=== PATIENT | female | born 1985 | race Caucasian/White ===

== ENCOUNTER 2021-07-07 21:54 | Observation (INO) ==
[2021-07-07] MEDS ORDERED: ONDANSETRON INJ 2 MG/ML 2 ML VIAL IV STA (22:24)
[2021-07-07] MEDS ORDERED: SODIUM CHLORIDE 0.9% 1000ML 1,000 ML IV SCH (22:30)
--- NOTE | 2021-07-07 22:31 | Emergency Department Note ---
History of Present Illness General Chief complaint: Abdominal Pain Stated complaint: ABDOMINAL PAIN, VOMITING, NAUSEA Time Seen by Provider: 07/07/21 22:12 History of Present Illness Maximum Pain Intensity: 5 This is a 35-year-old female presenting to the emergency department for evaluati on of abdominal pain, nausea, and vomiting for the past day. The patient states that she began with symptoms early this morning and they have worsened throughout the day. The patient does report some generalized abdominal pain that may be worse on the right side this evening. She does not have a history of abdominal surgery, and does not take medication on a regular basis. No fevers or chills. She has been able to tolerate sips of fluids over the past 2 hours without vomiting, but has not had food since 9 AM. She rates her discomfort a 5 AM in different positions seem to improve and worsen her pain. 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 Beliefs That Will Affect Care: None Current Living Situation: Spouse Other Information That Helps Us Care for You: No Feels Safe at Home: Yes Safety Concerns: Feels Safe At This Time Review of Systems A total of 10 systems reviewed and were otherwise negative Physical Exam Vital Signs Vital Signs - 24 hr 07/07/21 22:00 07/07/21 23:22 07/08/21 00:30 Temperature 36.9 C Temperature Source Temporal Artery Scan Pulse Rate 91 H Pulse Rate [Finger] 86 84 Respiratory Rate 22 20 20 Respiratory Effort / Characteristics Non-Labored Spontaneous Blood Pressure 114/80 Blood Pressure [Right Arm] 110/74 124/84 Blood Pressure Mean 91 Blood Pressure Mean [Right Arm] 86 97 Pulse Oximetry 99 98 Oxygen Delivery Method Room Air Room Air Room Air Sepsis Recent Fever Within 48 Hours No Sepsis New/Unexplained Change in Mental Status No Sepsis Action Taken by Nursing No Action Required 07/08/21 01:51 Temperature Temperature Source Pulse Rate Pulse Rate [Finger] 86 Respiratory Rate 20 Respiratory Effort / Characteristics Blood Pressure Blood Pressure [Right Arm] 126/81 Blood Pressure Mean Blood Pressure Mean [Right Arm] 96 Pulse Oximetry 98 Oxygen Delivery Method Room Air Sepsis Recent Fever Within 48 Hours Sepsis New/Unexplained Change in Mental Status Sepsis Action Taken by Nursing VITALS: Vitals are noted on the nurse's note and reviewed by myself. Vital signs stable. GENERAL: Well-developed, well-nourished, female, who is pleasant but mildly uncomfortable on presentation. MOUTH: Mucous membranes moist. Tonsils are not enlarged. Pharynx without erythema, blood, or exudate. Uvula midline. Airway patent. NECK: Supple without nuchal rigidity. No lymphadenopathy. No thyromegaly. Cervical spine is nontender. HEART: Regular rate and rhythm without murmurs gallops or rubs. LUNGS: Clear to auscultation bilaterally without wheezes, rales or rhonchi. No retractions or accessory muscle use. ABDOMEN: Positive normal bowel sounds x 4. Soft with tenderness in the right lower quadrant. No rebound or guarding. No CVA tenderness. MUSCULOSKELETAL: No muscle atrophy, erythema, or edema noted. Full range of motion in all extremities. Course Administered Medications Potassium Chloride 10 meq/ (Sodium Chloride) 1,005 mls @ 100 mls/hr IV .Q10H3M [facility] Stop: 08/07/21 02:59 Last Admin: 07/08/21 06:31 Dose: 100 mls/hr Documented by: [id number] Ondansetron HCl (Ondansetron Inj 2 Mg/Ml 2 Ml Vial) 4 mg IV Q6H PRN PRN Reason: Nausea And Vomiting Stop: 08/07/21 02:52 Last Admin: 07/08/21 03:08 Dose: 4 mg Documented by: [id number] Discontinued Medications Sodium Chloride (Nss 1000ml) 1,000 mls @ 999 mls/hr IV .Q1H1M [facility] Stop: 07/07/21 23:30 Last Infusion: 07/07/21 23:53 Dose: 0 mls/hr Documented by: [id number] Admin: 07/07/21 22:45 Dose: 999 mls/hr Documented by: [id number] Cefoxitin Sodium (Mefoxin) 2,000 mg in 60 mls @ 100 mls/hr IV NOW STA Stop: 07/08/21 03:04 Last Infusion: 07/08/21 03:24 Dose: 0 mls/hr Documented by: [id number] Admin: 07/08/21 02:50 Dose: 100 mls/hr Documented by: [id number] Ioversol (Optiray 320 100ml) 100 ml IV ONCE ONE Stop: 07/08/21 01:18 Last Admin: 07/08/21 01:17 Dose: 93 ml Documented by: [id number] Morphine Sulfate (Morphine Sulfate 4 Mg/Ml 1 Ml Carp\Vial) 4 mg IV Q30M PRN PRN Reason: Pain Stop: 07/21/21 22:23 Last Admin: 07/08/21 03:08 Dose: 4 mg Documented by: [id number] Admin: 07/07/21 22:45 Dose: 4 mg Documented by: [id number] Ondansetron HCl (Ondansetron Inj 2 Mg/Ml 2 Ml Vial) 4 mg IV NOW STA Stop: 07/07/21 22:25 Last Admin: 07/07/21 22:44 Dose: 4 mg Documented by: [id number] Medical Decision Making Differential Diagnosis Differential diagnosis: Etiologies such as biliary colic, cholecystitis, hepatitis, pancreatitis, cardiac disease, pancreatitis, gastritis, peptic ulcer disease, appendicitis, cystitis, diverticulitis, mesenteric ischemia, inflammatory bowel disease, ileus, bowel obstruction, testicular/adnexal torsion, aortic pathology, shingles, as well as others were considered Laboratory Data Result diagrams: 07/07/21 22:41 07/07/21 22:41 Lab Results 07/07/21 07/07/21 07/07/21 Range/Units 22:41 22:41 22:41 WBC 19.36 H (4.8-10.8) K/uL RBC 4.15 L (4.2-5.4) M/uL Hgb 12.7 (12.0-16.0) g/dL Hct 36.2 L (37-47) % MCV 87.2 (80-100) fL MCH 30.6 (25-34) pg MCHC 35.1 (32-36) g/dL RDW Std Deviation 41.6 (36.4-46.3) fL RDW Coeff of Mikey 12.9 (11.5-14.5) % Plt Count 331 (130-400) K/uL MPV 9.6 (7.4-10.4) fL Neutrophils % (Manual) 96.5 % Lymphocytes % (Manual) 2.6 % Monocytes % (Manual) 0.9 % Neutrophils # (Manual) 18.68 H (1.4-6.5) K/uL Total Absolute Neuts 18.68 H (1.4-6.5) K/uL Lymphocytes # (Manual) 0.50 L (1.2-3.4) K/uL Total Abs Lymphocytes 0.50 L (1.2-3.4) K/uL Monocytes # (Manual) 0.17 (0.11-0.59) K/uL Sodium 135 L (136-145) mmol/L Potassium 3.4 L (3.5-5.1) mmol/L Chloride 100 (98-107) mmol/L Carbon Dioxide 24 (21-32) mmol/L Anion Gap 11 (3-11) BUN 12 (6-23) mg/dl Creatinine 0.71 (0.6-1.2) mg/dl Est Cr Clr Drug Dosing 106.9 ml/min Est GFR ( Amer) 126.1 ml/min Est GFR (Non-Af Amer) 108.8 ml/min BUN/Creatinine Ratio 16.9 (10-20) Glucose 127 H (70-99(Fasting)) mg/dl Calcium 9.5 (8.5-10.1) mg/dl Total Bilirubin 0.7 (0.2-1.0) mg/dl AST 14 (13-39) U/L ALT 12 (7-52) U/L Alkaline Phosphatase 46 (34-104) U/L Total Protein 7.6 (6.0-8.3) gm/dl Albumin 4.4 (3.4-5.0) gm/dl Globulin 3.2 (2.5-4.0) gm/dl Albumin/Globulin Ratio 1.4 (0.9-2) Lipase 12 (11-82) U/L Urine Color Dark Yellow Urine Appearance Turbid A (Clear) Urine pH 6.0 (4.5-7.5) Ur Specific [place] 1.036 H (1.000-1.030) Urine Protein 1+ H (Negative) Urine Glucose (UA) Negative (Negative) Urine Ketones 1+ H (Negative) Urine Blood Negative (Negative) Urine Nitrite Negative (Negative) Urine Bilirubin Negative (Negative) Urine Urobilinogen Negative (Negative) Ur Leukocyte Esterase Trace H (Negative) Urine WBC (Auto) 1-5 (0-5) /hpf Urine RBC (Auto) 0-4 (0-4) /hpf U Hyaline Cast (Auto) 0 (0-5) /lpf U Epithel Cells (Auto) 0-5 (0-5) /lpf Urine Bacteria (Auto) 2+ H (Negative) Urine Crystals Amorphous Sediment A (None Prsent) Amorphous Sediment Present A (None Prsent) POC Ur Test (NEG) SARS-CoV-2, RNA, NAAT (NEGATIVE) 07/07/21 07/07/21 Range/Units 22:41 22:41 WBC (4.8-10.8) K/uL RBC (4.2-5.4) M/uL Hgb (12.0-16.0) g/dL Hct (37-47) % MCV (80-100) fL MCH (25-34) pg MCHC (32-36) g/dL RDW Std Deviation (36.4-46.3) fL RDW Coeff of Mikey (11.5-14.5) % Plt Count (130-400) K/uL MPV (7.4-10.4) fL Neutrophils % (Manual) % Lymphocytes % (Manual) % Monocytes % (Manual) % Neutrophils # (Manual) (1.4-6.5) K/uL Total Absolute Neuts (1.4-6.5) K/uL Lymphocytes # (Manual) (1.2-3.4) K/uL Total Abs Lymphocytes (1.2-3.4) K/uL Monocytes # (Manual) (0.11-0.59) K/uL Sodium (136-145) mmol/L Potassium (3.5-5.1) mmol/L Chloride (98-107) mmol/L Carbon Dioxide (21-32) mmol/L Anion Gap (3-11) BUN (6-23) mg/dl Creatinine (0.6-1.2) mg/dl Est Cr Clr Drug Dosing ml/min Est GFR ( Amer) ml/min Est GFR (Non-Af Amer) ml/min BUN/Creatinine Ratio (10-20) Glucose (70-99(Fasting)) mg/dl Calcium (8.5-10.1) mg/dl Total Bilirubin (0.2-1.0) mg/dl AST (13-39) U/L ALT (7-52) U/L Alkaline Phosphatase (34-104) U/L Total Protein (6.0-8.3) gm/dl Albumin (3.4-5.0) gm/dl Globulin (2.5-4.0) gm/dl Albumin/Globulin Ratio (0.9-2) Lipase (11-82) U/L Urine Color Urine Appearance (Clear) Urine pH (4.5-7.5) Ur Specific [place] (1.000-1.030) Urine Protein (Negative) Urine Glucose (UA) (Negative) Urine Ketones (Negative) Urine Blood (Negative) Urine Nitrite (Negative) Urine Bilirubin (Negative) Urine Urobilinogen (Negative) Ur Leukocyte Esterase (Negative) Urine WBC (Auto) (0-5) /hpf Urine RBC (Auto) (0-4) /hpf U Hyaline Cast (Auto) (0-5) /lpf U Epithel Cells (Auto) (0-5) /lpf Urine Bacteria (Auto) (Negative) Urine Crystals (None Prsent) Amorphous Sediment (None Prsent) POC Ur Test NEG (NEG) SARS-CoV-2, RNA, NAAT NEGATIVE (NEGATIVE) Imaging Data Radiologist's Impression: Preliminary Findings Only See Final Report For Complete Findings CT ABDOMEN & PELVIS With Contrast: There is an 8 x 12 mm proximal appendicolith noted. Distal to the appendicolith, the appendix is abnormally fluid filled and dilated, measuring 15 mm with periappendiceal fat stranding. Findings are most consistent with acute appendicitis. No evidence for perforation or abscess formation. No bowel obstruction. The liver, gallbladder, pancreas, spleen, adrenal glands and kidneys are unremarkable. The bladder is unremarkable. No acute osseous abnormality. No significant overlying soft tissue abnormality with incidental laxity of the linea alba in the periumbilical region. Radiologist:Fred Guzmán MD [facility] Narrative Physical exam and history were performed. Nursing notes, EMR, and Medication List were personally reviewed. Patient appears to have nausea and vomiting bringing her to the emergency department. On exam she does have tenderness in the right lower quadrant which is concerning. IV access was established and labs were obtained. She was hydrated normal saline and given IV morphine and IV Zofran for comfort. She was prepped for CT scan of the abdomen pelvis with IV and oral contrast. She was kept n.p.o. and Covid was performed. The patient's blood work is as above and was reviewed. She does have an elevate d white blood cell count of 19,000 with associated neutrophil count of 18,000. Lipase and transaminases are not diagnostic. Urine is negative for and culture is pending. Covid is negative. CT scan is as above and was reviewed by myself and radiology. CT scan is concerning for acute appendicitis. The patient was given IV Mefoxin here in the ER and I did reach out to the surgical service. Please see their dictation for further patient course, plan, and disposition. The chart was completed utilizing [employer] Speech Voice Recognition Software. Grammatical errors, random word insertions, pronoun errors, and incomplete sentences are an occasional consequence of this system due to software limitations, ambient noise, and hardware issues. Any formal questions or concerns about the content, text, or information contained within the body of this dictation should be directly addressed to the provider for clarification. . Impression & Plan Acute appendicitis, RLQ abdominal pain Discharge Plan Visit Data Chief Complaint: Abdominal Pain Stated Complaint: ABDOMINAL PAIN, VOMITING, NAUSEA ED Provider: Rashad Gonzalez ED Midlevel Provider: Ben Santana Discharge Problem: Acute appendicitis, RLQ abdominal pain Patient Disposition: Admitted As Inpatient Discharge Instructions Interventions: ED Discharge Assessment Last Done: 07/08/21 03:38
[2021-07-07] MEDS: MoRPHine SULFATE 4 MG/ML 1 ML CARP\\VIAL IV PRN (22:45)
[2021-07-07 22:54] LABS: Appearance Urine Turbid (Clear); Bilirubin Urine Negative (Negative); Blood Urine Negative (Negative); Color Urine Dark Yellow; Glucose Urine UA Negative (Negative); Ketones Urine 1+ (Negative); Leukocyte Esterase Urine Trace (Negative); Nitrite Urine Negative (Negative); Protein Urine 1+ (Negative); Specific Gravity Urine 1.036 (1.000-1.030); Urobilinogen Urine Negative (Negative)
[2021-07-07 22:58] LABS: Hematocrit (blood only) 36.2 % (37-47); Hemoglobin 12.7 g/dL (12.0-16.0); Mean Corpuscular Hemoglobin 30.6 pg (25-34); Mean Corpuscular Hgb Conc 35.1 g/dL (32-36); Mean Corpuscular Volume 87.2 fL (80-100); Mean Platelet Volume 9.6 fL (7.4-10.4); Platelet Count 331 K/uL (130-400); RDW Coefficient of Variation 12.9 % (11.5-14.5); RDW Standard Deviation 41.6 fL (36.4-46.3); Red Blood Count 4.15 M/uL (4.2-5.4); White Blood Count 19.36 K/uL (4.8-10.8)
[2021-07-07 23:01] LABS: Amorphous Sediment Urine Present (None Prsent); Bacteria Urine Automated 2+ (Negative); Cast Urine Automated 0 /lpf (0-5); Epithelial Cell Urine Auto 0-5 /lpf (0-5); RBC Urine Automated 0-4 /hpf (0-4)
[2021-07-07 23:16] LABS: Albumin Globulin Ratio 1.4 (0.9-2); Albumin Level 4.4 gm/dl (3.4-5.0); BUN Creatinine Ratio 16.9 (10-20); Bilirubin,Total 0.7 mg/dl (0.2-1.0); Calcium 9.5 mg/dl (8.5-10.1); Creatinine Clr Calc Pharmacy 106.9 ml/min; Est GFR (African American) 126.1 ml/min; Est GFR (Non-African American) 108.8 ml/min; Globulin 3.2 gm/dl (2.5-4.0); Potassium 3.4 mmol/L (3.5-5.1); Total Protein 7.6 gm/dl (6.0-8.3)
[2021-07-07 23:20] LABS: ANC (manual) 18.68 K/uL (1.4-6.5); Lymphocytes % (manual) 2.6 %; Monocytes # (manual) 0.17 K/uL (0.11-0.59); Monocytes % (manual) 0.9 %; Neutrophils # (manual) 18.68 K/uL (1.4-6.5); Neutrophils % (manual) 96.5 %
[2021-07-08] MEDS ORDERED: OPTIRAY 320 100ml IV ONE (01:17)
[2021-07-08] MEDS ORDERED: cefOXitin 2,000 MG/60 ML BAG IV STA (02:29)
--- NOTE | 2021-07-08 02:49 | History & Physical Report ---
Date of Service July 08, 2021 Assessment & Plan (1) Acute appendicitis: Plan: Due to the patient's clinical presentation, labs, and imaging we admit her to the hospital proceeding as follows: Analgesia will be provided Antiemetics will be provided We will make the patient n.p.o. We will provide hydration with IV fluids, supplementing her potassium We will initiate antibiotics. The treating clinician in the emergency department has already ordered Mefoxin which we will continue We will plan on performing an appendectomy. I discussed the laparoscopic, possible open appendectomy with the patient outlining the risks, benefits, and expected postoperative course. She wishes to proceed. Additional recommendations be forthcoming based on operative findings and her postoperative course SCDs were used for DVT prevention, no chemical means due to planned surgery She will be a level 1 full code History of Present Illness Chief Complaint: Abdominal pain Primary Care Provider: NO PCP This is a 35-year-old female who presented to [facility] emergency department secondary to abdominal pain. Patient notes that the pain began approximate 24 hours ago. She did not seek medical attention initially because she thought it was merely indigestion. Patient had an associated headache but several hours later after eating breakfast she had nausea vomiting. She noted that she had generalized abdominal pain which was greatest in the suprapubic region but that has since shifted to the right lower quadrant. She notes that the pain has been improved by medicine that was administered in the emergency department. She denies any provocative factors. She notes that she has never had any prior abdominal surgeries. The only other associated symptoms the patient has was a headache that preceded her abdominal pain. No fevers or chills were reported. In the emergency department the patient had labs and imaging which I independent reviewed. CT scan abdomen and pelvis showed the patient had an 8 x 12 mm proximal appendicolith. Distal to the pedicle at the appendix was noted to be d ilated and fluid-filled measuring approximately 15 mm. There is periappendiceal fat stranding. Findings were felt to be consistent with acute appendicitis, however no evidence of perforation or abscess was noted. Labs include a CBC her white blood cell count was 19.3. Hemoglobin was 12.7 and hematocrit was 36.2. Platelet count was noted to be within the normal range. Chemistry profile showed sodium and potassium are 135 and 3.4. BUN and creatinine were 12 and 0.7. There is no elevation of patient's LFTs or lipase. Urinalysis was not indicative of infection. test was noted to be negative. Covid test was noted to be negative. At the time of my interview the patient was resting in bed. She was in no distress Allergies Allergy/AdvReac Type Severity Reaction Status Date / Time Penicillins AdvReac Intermediate SEE COMMENT Verified 07/08/21 07:01 Home Medications Medication Instructions Recorded Confirmed Type CONTROL #0 10/06/05 History norgestimate 0.25 mg-ethinyl 1 tab PO DAILY 07/07/21 07/07/21 History estradiol 35 mcg tablet Past Med/Surg History Medical History (Updated 07/08/21 @ 07:01 by Madisyn Day) No chronic diseases present Surgical History (Updated 07/08/21 @ 07:01 by Madisyn Day) No significant past surgical history Social History (System 07/08/21 @ 07:01 by Madisyn Day) Smoking Status: Never smoker Hx Alcohol Use: No Hx Substance Use: No Preferred Language: Puerto Rican Communication Ability: Effective 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 Beliefs That Will Affect Care: None Current Living Situation: Spouse Other Information That Helps Us Care for You: No Feels Safe at Home: Yes Safety Concerns: Feels Safe At This Time Assistive Devices: None Review of Systems Constitutional: no fever and no chills Eyes: no diplopia Ear, Nose, Mouth, Throat: no ear pain Respiratory: no cough and no dyspnea Cardiovascular: no chest pain Gastrointestinal: + abdominal pain, + nausea and + vomiting Genitourinary: no dysuria Musculoskeletal: no back pain Integumentary: no rash Neurologic: no localized weakness Physical Exam Constitutional: WD/WN, vitals as above Eyes: no conjunctival abnormality ENMT: Ears: no hearing impairment and no external ear abnormality Mouth: no oropharynx abnormality Neck: trachea midline Respiratory: normal respiratory effort; no respiratory distress and no labored breathing Cardiovascular: Rate/Rhythm: regular rate and regular rhythm Gastrointestinal (Abdomen): Abdomen is minimally distended. It is otherwise soft. There is no rebound tenderness or guarding however patient did have pain with palpation in the right lower quadrant over McBurney's point. Musculoskeletal: No calf tenderness Skin: no rashes Neurologic: moves all extremities Psychiatric: A+Ox3, euthymic affect Results & Data Results & Data ([facility]) Vital Signs (Past 12 Hours) Vital Signs Temp Pulse Pulse Resp BP BP Pulse Ox 07/08/21 01:51 86 20 126/81 98 07/08/21 00:30 84 20 124/84 98 07/07/21 23:22 86 20 110/74 99 07/07/21 22:00 36.9 C 91 H 22 114/80 Supervising Physician Co-Signing Physician Notes Patient seen and examined, labs and imaging reviewed, agree with above. 35-year-old female with acute appendicitis. Afebrile with stable vitals, tender to palpation in the right lower quadrant. WBC 19. CT with dilated appendix with appendicolith. Plan for laparoscopic appendectomy. Risk the procedure were discussed to include but not limited to bleeding, infection, conversion open, normal appendix, need for future more extensive surgery, demonstrating structures, and the risk of anesthesia. PG Care Time/CCT Total # of Minutes Spent Total Time Spent with Patient: Total time spent is greater than 50% in coordination of care (as documented) at patient's floor/unit and/or counseling patient: Coding Level of Care Code INT OBSERVATION CARE 70M LVL 3 Diagnoses Acute appendicitis K35.80
[2021-07-08] MEDS ORDERED: MoRPHine SULFATE 4 MG/ML 1 ML CARP\\VIAL IV PRN ×2 (02:53→14:40)
[2021-07-08] MEDS ORDERED: ONDANSETRON INJ 2 MG/ML 2 ML VIAL IV PRN ×2 (02:53→12:18)
[2021-07-08] MEDS ORDERED: ACETAMINOPHEN 1,000 MG/100 ML VIAL IV PRN (02:53)
[2021-07-08] MEDS ORDERED: POTASSIUM CHLORIDE 10 MEQ in SODIUM CHLORIDE 0.9% 1000ML 1,000 ML IV SCH (03:00)
[2021-07-08] MEDS: MoRPHine SULFATE 4 MG/ML 1 ML CARP\\VIAL IV PRN (03:08)
--- NOTE | 2021-07-08 06:50 | Anesthesiology Consultation ---
Date of Service July 08, 2021 Assessment & Plan (1) Encounter for pre-operative examination: Chart Review Chart Review: freelance data entry initiated History Surgery Operation Date: 07/08/21 09:40 Proposed Procedures p Laparoscopic Appendectomy - Arnulfo Snell DO, FACS Height/Weight Height: 5 ft 5 in Weight: 70.5 kg Allergies Allergy/AdvReac Type Severity Reaction Status Date / Time Penicillins AdvReac Intermediate SEE COMMENT Verified 07/07/21 22:46 Medications Home Medications Medication Instructions Recorded Confirmed Last Taken norgestimate 0.25 mg-ethinyl 1 tab PO DAILY 07/07/21 07/07/21 07/07/21 estradiol 35 mcg tablet Active Medications Generic Name Dose Route Start Last Admin Trade Name Freq PRN Reason Stop Dose Admin Potassium Chloride 10 meq/ 1,005 mls @ 100 mls/hr 07/08/21 03:00 07/08/21 06:31 Sodium Chloride IV 08/07/21 02:59 100 mls/hr .Q10H3M [facility] Administration Ondansetron HCl 4 mg 07/08/21 02:53 07/08/21 03:08 Ondansetron Inj 2 Mg/Ml 2 Ml Vial IV 08/07/21 02:52 4 mg Q6H PRN Administration Nausea And Vomiting Past Medical History Medical History No chronic diseases present Past Surgical History Surgical History No significant past surgical history Social History Smoking Status: Never smoker Hx Alcohol Use: No Hx Substance Use: No Physical Exam Vital Signs Last Vital Signs Temp 98.8 F 07/08/21 03:55 Pulse 101 H 07/08/21 03:55 Resp 18 07/08/21 03:55 BP 135/80 07/08/21 03:55 Pulse Ox 98 07/08/21 03:55 Testing Laboratory Results 07/07/21 22:41 07/07/21 22:41 Urine Color Dark Yellow 07/07/21 22:41 Urine Appearance Turbid (Clear) A 07/07/21 22:41 Urine pH 6.0 (4.5-7.5) 07/07/21 22:41 Ur Specific [place] 1.036 (1.000-1.030) H 07/07/21 22:41 Urine Protein 1+ (Negative) H 07/07/21 22:41 Urine Glucose (UA) Negative (Negative) 07/07/21 22:41 Urine Ketones 1+ (Negative) H 07/07/21 22:41 Urine Nitrite Negative (Negative) 07/07/21 22:41 Ur Leukocyte Esterase Trace (Negative) H 07/07/21 22:41 Urine WBC (Auto) 1-5 /hpf (0-5) 07/07/21 22:41 Urine RBC (Auto) 0-4 /hpf (0-4) 07/07/21 22:41 U Hyaline Cast (Auto) 0 /lpf (0-5) 07/07/21 22:41 U Epithel Cells (Auto) 0-5 /lpf (0-5) 07/07/21 22:41 Urine Bacteria (Auto) 2+ (Negative) H 07/07/21 22:41 07/07/21 22:41 POC Ur Test NEG
--- NOTE | 2021-07-08 07:34 | CT Scan Report ---
ABDOMEN AND PELVIS CT WITH IV AND ORAL CONTRAST CT DOSE: 505.95 mGycm HISTORY: Acute right lower quadrant abdominal pain with nausea and vomiting rlq abd pain, n/v TECHNIQUE: Multiaxial CT images of the abdomen and pelvis were performed following the IV administrat ion of 93 cc of Optiray and oral contrast. A dose lowering technique was utilized adhering to the pr inciples of ZACHARIAH. COMPARISON STUDY: None. FINDINGS: The imaged inferior cardiac chambers are unremarkable. Clear lung bases. No pneumatosis or pneumoperitoneum. The spleen, pancreas, gallbladder, adrenal glands and liver appear unremarkable. Pa tency of the hepatic and portal veins. Normal kidneys. No hydronephrosis. The urinary bladder, uterus and adnexa are unremarkable. Trace free pelvic fluid. Air within the endovaginal canal incidentally noted. Aorta and IVC are unremarkable. There is no adenopathy. No bowel obstruction. Mild fecal retention. There is a 1.4 cm appendicolith the proximal appendiceal lumen. The appendix is dilated and fluid-filled measuring up to 1.4 cm transversely with surrounding inflammatory stranding and trace free fluid. Subcentimeter appendicolith with air noted within the di stal appendix. No perforation or drainable fluid collection. Diastases recti with tiny fat filled per iumbilical hernia, diastases of 1.5 cm. No acute fracture. Unremarkable soft tissues. Segmentation an omaly with butterfly vertebral body noted at T11. IMPRESSION: 1. Acute appendicitis secondary to an obstructing appendicolith. Air within the distal appendiceal ti p is suggestive of intraluminal necrosis. No perforation or abscess. 2. Trace free pelvic fluid. 3. No bowel obstruction. 4. Diastases recti with tiny fat filled periumbilical hernia. ACT 112: Negative or not required by law. The above report was generated using voice recognition software. It may contain grammatical, syntax o r spelling errors. Electronically signed by: Michael Madsen M.D. 07/08/2021 7:33 AM
[2021-07-08] MEDS: cefOXitin 2,000 MG in DEXTROSE 5% 50 ML IV SCH ×2 (07:50→13:53)
--- NOTE | 2021-07-08 10:31 | History & Physical Bridge Note ---
Date of Service July 08, 2021 History & Physical Bridge Note I have examined the patient, reviewed the History & Physical and in the interval since the performance of the History & Physical I have noted the following changes of clinical significance: no changes noted
[2021-07-08] MEDS ORDERED: PROPOFOL IV EMULSION 10 MG/ML 20 ML VIAL IV ONE (12:13)
[2021-07-08] MEDS ORDERED: NEOSTIGMINE METHYLSULFATE 1 MG/ML 10ML VIAL ONE (12:13)
[2021-07-08] MEDS ORDERED: DEXAMETHASONE SOD INJ 4 MG/ML VIAL ONE (12:13)
[2021-07-08] MEDS ORDERED: fentaNYL citrate 100 MCG/2 ML VIAL ONE ×2 (12:13→13:10)
[2021-07-08] MEDS ORDERED: ROCURONIUM BROMIDE 10 MG/ML 5 ML VIAL IV ONE (12:13)
[2021-07-08] MEDS ORDERED: ONDANSETRON INJ 2 MG/ML 2 ML VIAL ONE (12:13)
[2021-07-08] MEDS ORDERED: MIDAZOLAM HCL 1 MG/ML 2ML VIAL ONE (12:13)
[2021-07-08] MEDS ORDERED: LIDOCAINE 2% 2 ML VIAL/AMP(20MG/ML) INFIL ONE (12:13)
[2021-07-08] MEDS ORDERED: GLYCOPYRROLATE 0.2 MG/ML VIAL ONE (12:13)
[2021-07-08] MEDS ORDERED: fentaNYL citrate 100 MCG/2 ML VIAL IV PRN (12:18)
[2021-07-08] MEDS ORDERED: ePHEDrine sulfate 50 MG/ML AMP IV PRN (12:18)
[2021-07-08] MEDS ORDERED: ATROPINE SULFATE 0.1 MG/ML 10ML SYR IV PRN (12:18)
[2021-07-08] MEDS ORDERED: BUPIVACAINE 0.5 % 5 MG/1 ML MPF 30ML VIAL ONE (12:37)
[2021-07-08] MEDS ORDERED: SCOPOLAMINE 1 MG TDSY TD ONE (12:45)
[2021-07-08] MEDS ORDERED: PHENYLEPHRINE 100MCG/ML 5ML SYR ONE (13:08)
--- NOTE | 2021-07-08 13:49 | Operative Report ---
PG Post Operative Report Pre & Post Diagnosis Operation Date: 07/08/21 09:40 Pre-Op Diagnosis: Acute appendicitis Post-Op Diagnosis: Acute appendicitis I identified the patient and participated in the time-out.: Yes Procedure Operation Date: 07/08/21 09:40 Actual Procedures p Laparoscopic Appendectomy(Not Applicable) - Arnulfo Snell DO, FACS Surgeon Arnulfo Snell DO, FACS Behavioral Technician George Tobar Estimated Blood Loss 5 Findings Consistent with Post-Op Diagnosis Partially retrocecal inflamed appendix. No perforation. Mesoappendix taken down with harmonic scalpel, 60 mm purple loaded endoscopic stapler used to staple across the appendix. Specimens Appendix Anesthesia Type General Complications none Disposition Accompanied Patient To Recovery: No Disposition: Recovery Room Indications 35-year-old female presented with signs and symptoms of appendicitis. Plan for laparoscopic appendectomy. The risks of the procedure were discussed, all questions were answered, and the patient agreed to proceed with surgery as planned. Description of Procedure The patient was properly identified, consented, and taken to the operating room where she was placed in the supine position. General endotracheal anesthesia was induced. SCDs and a safety belt were placed. Preoperative antibiotics were administered. A Britton catheter was not placed. The patient's abdomen was prepped and draped in the standard sterile fashion. Surgical timeout was performed and all parties were in agreement that this was the correct patient and procedure to be performed and we continued as planned. An incision was made just to the left and superior of the umbilicus. The Veress needle was inserted and saline drop test confirmed entry into the peritoneum. The peritoneum was insufflated with carbon dioxide which the patient tolerated without incident. Veress needle was removed and the abdomen was accessed using the Optiview technique with a 5 mm trocar and a 5 mm 30 degree camera. The laparoscope was inserted and no damage from initial trocar placement was noted, no gross abnormalities were noted within the 4 quadrants the abdomen. A 5 mm port was placed in the suprapubic position with care not to damage the bladder, and a 12 mm port was placed in the left lower quadrant with care not to damage the epigastric vessels. The patient was placed in Trendelenburg position and rotated towards the left. The small bowel was swept away from the right lower quadrant. The cecum was grasped with an atraumatic grasper exposing the appendix. The appendix was significantly inflamed but there was no evidence of perforation. There was no fluid in the pelvis. The appendix was partially retrocecal. The harmonic scalpel was utilized to mobilize the appendix and a small portion of the cecum. There was some inflammation at the base of the appendix and terminal ileum. The Harmonic scalpel was utilized to take down the mesoappendix working once from distal to proximal. Once we got down to a healthy base of the appendix we were able to staple across this. A purple loaded endoscopic stapler was then used to divide the appendix at its base. The appendix was placed in an Endo Catch bag and removed through the left lower quadrant port site. The right lower quadrant and pelvis was irrigated and hemostasis was found to be good. The fascia of the left lower quadrant port site was closed with 0 Vicryl utilizing the Kashif- Froy device. The other ports were removed and the abdomen was allowed to collapse. The wound was irrigated, and the skin of all ports was closed with 4- 0 Monocryl subcuticular sutures. Dermabond was placed over the wounds. The patient was extubated in the operating room and taken to the PACU where she recovered without apparent incident. All sponge, instrument and needle counts were correct at the conclusion of the procedure. The patient tolerated the procedure well. The physician's machine assistant was present and scrubbed for the entirety of the case. He was critical in positioning the patient, prepping and draping, retraction and exposure, driving the laparoscope, closure of the incisions, and placement of the dressings. I attest to the content of the Intraoperative Record and any orders documented therein. Any exceptions are noted below.
--- NOTE | 2021-07-08 14:28 | Anesthesiology Progress Note ---
Date of Service July 08, 2021 Anesthesia Post Procedure Vital Signs Vital Signs: Temp Pulse Pulse Pulse Pulse Resp BP 07/08/21 14:20 97.7 F 71 20 07/08/21 14:10 67 16 07/08/21 14:00 68 15 07/08/21 13:53 97.3 F L 72 20 07/08/21 11:55 99.0 F 83 18 07/08/21 07:25 99.0 F 86 18 07/08/21 03:55 98.8 F 101 H 18 07/08/21 03:34 93 H 16 07/08/21 03:00 84 18 07/08/21 02:53 83 16 07/08/21 01:51 86 20 07/08/21 00:30 84 20 07/07/21 23:22 86 20 07/07/21 22:00 98.4 F 91 H 22 114/80 BP BP Pulse Ox 07/08/21 14:20 110/74 98 07/08/21 14:10 108/73 99 07/08/21 14:00 109/73 100 07/08/21 13:53 106/76 100 07/08/21 11:55 104/72 98 07/08/21 07:25 107/70 97 07/08/21 03:55 135/80 98 07/08/21 03:34 120/76 99 07/08/21 03:00 132/87 98 07/08/21 02:53 120/83 99 07/08/21 01:51 126/81 98 07/08/21 00:30 124/84 98 07/07/21 23:22 110/74 99 07/07/21 22:00 Pain Intensity Bilateral Abdomen: Pain Intensity: 3 Transfer of Care Handoff Completed per policy Notes Mental Status: alert / awake / arousable and participated in evaluation Patient Amnestic to Procedure: Yes Nausea / Vomiting: adequately controlled Pain: adequately controlled Airway Patency, RR, SpO2: stable & adequate BP & HR: stable & adequate Hydration State: stable & adequate Anesthetic Complications: no major complications apparent and Pt Satisfied with anesthetic care
[2021-07-08] MEDS ORDERED: oxyCODONE/ACETAMINOPHEN 5mg/325mg TAB PO PRN ×2 (14:40)
[2021-07-08] MEDS ORDERED: LACTATED RINGER'S 1,000 ML IV SCH (14:40)
[2021-07-08] MEDS ORDERED: MoRPHine SULFATE 2 MG/ML CARP IV PRN (14:40)
--- NOTE | 2021-07-09 16:19 | Discharge Summary ---
Date of Service July 08, 2021 Admission HPI Per Admitting Provider This is a 35-year-old female who presented to [facility] emergency department secondary to abdominal pain. Patient notes that the pain began approximate 24 hours ago. She did not seek medical attention initially because she thought it was merely indigestion. Patient had an associated headache but several hours later after eating breakfast she had nausea vomiting. She noted that she had generalized abdominal pain which was greatest in the suprapubic region but that has since shifted to the right lower quadrant. She notes that the pain has been improved by medicine that was administered in the emergency department. She denies any provocative factors. She notes that she has never had any prior abdominal surgeries. The only other associated symptoms the patient has was a headache that preceded her abdominal pain. No fevers or chills were reported. In the emergency department the patient had labs and imaging which I independent reviewed. CT scan abdomen and pelvis showed the patient had an 8 x 12 mm proximal appendicolith. Distal to the pedicle at the appendix was noted to be dilated and fluid-filled measuring approximately 15 mm. There is periappendiceal fat stranding. Findings were felt to be consistent with acute appendicitis, however no evidence of perforation or abscess was noted. Labs include a CBC her white blood cell count was 19.3. Hemoglobin was 12.7 and hem atocrit was 36.2. Platelet count was noted to be within the normal range. Chemistry profile showed sodium and potassium are 135 and 3.4. BUN and creatinine were 12 and 0.7. There is no elevation of patient's LFTs or lipase. Urinalysis was not indicative of infection. test was noted to be negative. Covid test was noted to be negative. At the time of my interview the patient was resting in bed. She was in no distress Principal Diagnosis Acute appendicitis Discharge Exam Constitutional WD/WN, vitals as above Gastrointestinal (Abdomen) Inspection/Auscultation: + abdominal surgical incision (dry); abdomen not distended Percussion/Palpation: abdomen soft Discharge Data Allergies Allergy/AdvReac Type Severity Reaction Status Date / Time Penicillins AdvReac Intermediate SEE COMMENT Verified 07/08/21 11:58 Consultations 07/08/21 02:35 Consult General Surgery Stat Procedures Performed Operation Date: 07/08/21 09:40 Actual Procedures p Laparoscopic Appendectomy(Not Applicable) - Arnulfo M. Chambers, DO, FACS Ordered Studies 07/07/21 22:24 CT abd pelvis oral and IV con Urgent Hospital Course (1) Acute appendicitis: 35 y/o female presented to the ER with abdominal pain. Her white count was 19,[address] was consistent with acute appendicitis with appendicolith. She was admitted to the surgical service overnight and taken was taken to the operating room for laparoscopic appendectomy in the morning. She was able to advance diet and tolerate oral analgesics during the day and was stable for discharge home later that evening. Total Time Total Time Spent Total Time Spent (In Minutes): 10 Discharge Plan Discharge Items Patient Disposition: Home - Self-Care Reason For Visit: APPY Discharge Diagnosis: laparoscopic appendectomy Condition on Discharge: Good Activity: Per Instructions section Activity Comment: no strenuous activity for 2 weeks Lifting Comment: no heavy lifting (>20lbs) for 2 weeks Bathing Comment: may shower starting 07/09/21; no soaking in tubs/pools Exercise/Sports: Gradually increase as tolerated Driving/Machine Use: no driving while taking narcotic for pain Non-emergency contact: Surgeon Call non-emergency contact if: you have any medication questions, your symptoms worsen, your pain is not controlled, your pain is concerning for you, you have a fever, your temperature is above 101.5, your wound has increased redness, your wound has increased drainage and your wound pain has increased Follow-up/Referrals: Arnulfo Snell DO, FACS [Physician] - (Please call to schedule follow up in clinic within 2 weeks) PCP,NO [Primary Care Provider] - Diet: Regular Addtl Attending Provider Instructions: Pending Studies at Discharge: Yes Studies:: surgical pathology Stand-Alone Forms: My [facility] ProjectSpeaker, Smoking Cessation Medications and DC Order Prescriptions: New oxycodone-acetaminophen [Percocet] 5-325 mg tablet 1 - 2 tab PO .q4-6h PRN (Reason: pain, for initial therapy, max 6 tabs per day) Qty: 15 RF: 0 Continued CONTROL Qty: 0 RF: 0 norgestimate-ethinyl estradiol 0.25-35 mg-mcg tablet 1 tab PO DAILY RF: 0 Discharge Orders: Discharge Order (Routine); Ordered 07/08/21 Ordered By: Melanie Leos/Other Patient Handouts: Appendectomy Admission Data Admit Date/Time: 07/08/21 02:53 Attending Provider: Arnulfo Snell Admit Provider: Arnulfo Snell Primary Care Provider: PCP,NO Other Providers: Arnulfo Snell Other Interventions: Discharge Summary Assessment (RN) Last Done: 07/08/21 18:11 Coding Level of Care Code D/C DAY MANAGEMENT <30 MINS Diagnoses Acute appendicitis K35.80
== END 2021-07-08 18:38 | disposition home or self-care (01) ==
LOC: EDBD → ED 21:54 → 3W 21:54 → MERGE 07-08 02:53 → 3W 07-08 03:38
DX: Z88.0 Allergy status to penicillin; K35.80 Unspecified acute appendicitis